=== PATIENT | male | born 1960 | race Caucasian/White ===

== ENCOUNTER 2023-11-19 07:34 | Day surgery (SDC) | payer OTHER ==
[~2023-11-19] VITALS: Ht 177.8 cm; Wt 90.0 kg
[~2023-11-19 07:34] MED LIST: IBLOOD GLUCOSE TEST STRIP 1 EA TEST VI PRN; LACTATED RINGER'S 1,000 ML IV SCH; LIDOCAINE HCL 1% 5 ML SDV INJ ONE; MIDAZOLAM HCL 5 MG/5 ML VIAL IV PRN; fentaNYL citrate 100 MCG/2 ML VIAL IV PRN
[2023-11-19 07:59] VITALS: BP 127/74
[2023-11-19] MEDS ORDERED: fentaNYL citrate 100 MCG/2 ML VIAL ONE (08:10)
[2023-11-19] MEDS ORDERED: MIDAZOLAM HCL 5 MG/5 ML VIAL ONE (08:10)
--- NOTE | 2023-11-19 09:13 | NUR ---
11/19/23 0913 Darling Johnson 0989-PATIENT ARRIVED TO PACU ON 2L NC RR EVEN. PATIENT DROWSY REACTIVE TO VERBAL STIMULI DENIES PAIN OR NAUSEA. ORIENTED TO PACU DOZES BACK TO SLEEP. ABDOMEN SOFT. IVF INFUSING.
[2023-11-19 09:45] VITALS: BP 127/82
--- NOTE | 2023-11-20 22:29 | OR ---
[facility] [address], [place] [address] Signed DATE OF OPERATION: 11/19/2023 SURGEON: Jhonny Doyle MD PREOPERATIVE DIAGNOSIS: Heme-positive stools for colonoscopy. POSTOPERATIVE DIAGNOSES: 1. Sessile rectal polyp rectosigmoid (excised). 2. Internal hemorrhoids. PROCEDURE: Total colonoscopy to cecum with cold snare polypectomy x1. ANESTHESIA: Intravenous sedation fentanyl 150 mcg and Versed 5 mg. INDICATION: This 63-year-old white man is a patient of Charisma Astudillo at [facility]. He is referred for a finding of heme-positive stool. He last underwent colonoscopy in approximately 1999 which was said to be negative. He has no family history of colon cancer. He has no actual blood per rectum. He has a distant history of hepatitis C, which was treated with interferon and said to be cured. He is now to undergo colonoscopy on the basis of his heme-positive stool. He understands the risk of bleeding, infection, and perforation. FINDINGS: The prep was excellent. Complete colonoscopy was undertaken to the cecum with intubation of the ileum as well. The ileum was normal. The only finding of note was a small sessile polyp of the rectosigmoid which was excised with cold snare technique as well as internal hemorrhoids which were friable. Likely the hemorrhoids were accounting for the bleeding or fecal occult blood. There were no other findings of concern. PROCEDURE IN DETAIL: The patient was brought to the endoscopy suite and placed in lateral decubitus position given intravenous sedation to the point of slurred speech and nystagmus. Digital rectal examination was normal. An Olympus video colonoscope was passed in the rectum and manipulated throughout the colon ultimately intubating the cecum itself. The ileocecal valve and appendiceal Electronically Signed By: JHONNY DOYLE MD 11/20/23 2229 PATIENT NAME: OLINDA ROSARIO OPERATIVE REPORT DATE OF : 58 REPORT #: [id number] PHYSICIAN: JHONNY DOYLE MD PCP: ISABELLA JIMENEZ MD REPORT IS CONFIDENTIAL AND NOT TO BE RELEASED WITHOUT AUTHORIZATION [facility] [address], [place] [address] Signed orifice were normal. The scope was able to pass through the ileocecal valve into the ileum, which appeared normal. The scope was withdrawn back into the cecum and careful withdrawal of scope examination throughout showed no sign of abnormality into the rectosigmoid where small sessile polyp was noted. This was excised with cold snare technique. Retroflexed view of the rectum showed a friable internal hemorrhoidal changes. There was no sign of active bleeding. The scope was straightened, withdrawn and removed. The patient was taken to recovery room in good condition. CONCLUDING DIAGNOSES: 1. Rectosigmoid polyp, not likely to account for bleeding. 2. Internal hemorrhoids with friability, probably accounting for bleeding. PLAN: Recommend repeat colonoscopy in 5 years. Would recommend a fiber supplement such as Metamucil one scoop p.o. daily. If kenney rectal bleeding should recur, consideration for hemorrhoidal banding in the office setting would be made. He will return to the ongoing care of Dr. Astudillo at the [facility]. If hemorrhoidal banding is needed, we are available to do so. Jhonny Doyle MD JM/MODL /[id number] cc: Charisma Astudillo [facility] Copies: ~ Electronically Signed By: JHONNY DOYLE MD 11/20/23 2229 PATIENT NAME: OLINDA ROSARIO OPERATIVE REPORT DATE OF : 58 REPORT #: [id number] PHYSICIAN: JHONNY DOYLE MD PCP: ISABELLA JIMNEEZ MD REPORT IS CONFIDENTIAL AND NOT TO BE RELEASED WITHOUT AUTHORIZATION
--- NOTE | 2023-11-21 17:27 | PATH ---
[facility] [address] [place], [place] [address] Signed SPECIMEN(S): A RECTOSIGMOID POLYP SPECIMEN SOURCE: A. RECTOSIGMOID POLYP CLINICAL HISTORY: Positive fecal occult blood test, unintentional weight loss. Polyp, internal hemorrhoids. FINAL PATHOLOGIC DIAGNOSIS: Rectosigmoid polyp: - Hyperplastic polyp (one fragment). JVR:willam MICROSCOPIC EXAMINATION: Histologic sections of all submitted blocks are examined by light microscopy. These findings, together with the gross examination, support the pathologic diagnosis. GROSS DESCRIPTION: The specimen, labeled and designated "Kauss, rectosigmoid polyp," is received in formalin and consists of two sanchez soft tissue fragments, ranging from 0.2 to 0.5 cm. Entirely submitted in (A1). VB (under the direct supervision of a pathologist) The Gross Description was prepared using a voice recognition system. The report was reviewed for accuracy; however, sound-alike word errors, addition and/or deletions may occur. If there is any question about this report, please contact Client Services. ADDITIONAL NOTES: Immunohistochemical and/or in situ hybridization studies if performed in this case included appropriate positive controls that reacted as expected. This test was developed and its performance characteristics determined by [facility]. It has not been cleared or approved by the U.S. Food and Drug Administration. The FDA has determined that such clearance or approval is not necessary. This test is used for clinical purposes. It should not be regarded as investigational or for research. [facility] is certified under the Clinical Laboratory Improvement Amendments of 1988 (CLIA) as qualified to perform high complexity clinical laboratory testing. PATIENT NAME: OLINDA ROSARIO PATHOLOGY DATE OF : 58 REPORT #: [id number] PHYSICIAN: ENMA OJEDA PCP: ISABELLA JIEMNEZ MD REPORT IS CONFIDENTIAL AND NOT TO BE RELEASED WITHOUT AUTHORIZATION [facility] [address], [place] [address] Signed PERFORMING LABORATORY: Technical component was performed by [facility], [address] [place] [address] (CLIA# [id number]). Professional interpretation was performed by [facility] - [facility], [address] [place] [id number] (CLIA#: [id number]). Diagnostician: Benny Varela MD Pathologist Electronically Signed 11/21/2023 Copies: ~ PATIENT NAME: OLINDA ROSARIO PATHOLOGY DATE OF : 58 REPORT #: [id number] PHYSICIAN: ENMA OJEDA PCP: ISABELLA JIMENEZ MD REPORT IS CONFIDENTIAL AND NOT TO BE RELEASED WITHOUT AUTHORIZATION
== END 2023-11-19 09:52 | disposition home or self-care (01) ==
LOC: DS 07:34 → OPS 07:34 → DS 11:30 → OPS 11:30
PROVIDERS: ATTEND Surgery
PROC: 0DBN8ZX Excision of Sigmoid Colon, Via Natural or Artificial Opening Endoscopic, Diagnostic (ICD-10-PCS; principal; 2023-11-19 08:30)
DX: K63.5 Polyp of colon (principal); K64.8 Other hemorrhoids; R63.4 Abnormal weight loss; R19.5 Other fecal abnormalities; Z83.1 Family history of other infectious and parasitic diseases
CPT/HCPCS: 88305; 99153; G0500; J2250; J3010; J7121

== ENCOUNTER 2024-01-27 09:44 | Emergency (ER) | payer OTHER ==
[~2024-01-27] VITALS: Ht 177.8 cm; Wt 93.0 kg
[2024-01-27] MEDS ORDERED: IBU400 MG PO (09:59)
[2024-01-27] MEDS ORDERED: IBUPROFEN 600 MG TAB PO ONE (10:30)
[2024-01-27 10:50] LABS: BASOPHILS 0.7 % (0-2); EOSINOPHILS 2.1 % (0-6); HEMATOCRIT 44.2 % (35.0-50.0); HEMOGLOBIN 15.6 g/dL (12.0-18.0); LYMPHOCYTES 20.5 % (24-44); MCH 32.7 (27-36); MCHC 35.3 g/dl (30-36); MCV 92.7 fl (81-99); MONOCYTES 12.6 % (0-12); NEUTROPHILS 64.1 % (39-80); PLATELET COUNT 123 K/uL (140-440); RBC 4.77 M/ul (4.3-5.7)
[2024-01-27 11:05] LABS: BUN/CREATININE RATIO 15.11 (6.0-28.6); CALCIUM 8.7 mg/dL (8.5-10.1); CREATININE, SERUM 0.86 mg/dL (0.70-1.30)
[2024-01-27] MEDS ORDERED: PREDNISONE20 MG PO (12:20)
[2024-01-27 12:31] VITALS: BP 155/89
== END 2024-01-27 12:33 | disposition home or self-care (01) ==
LOC: ED 09:44
PROVIDERS: Emergency Medicine
DX: M25.462 Effusion, left knee (principal); F17.200 Nicotine dependence, unspecified, uncomplicated; Z88.0 Allergy status to penicillin; Z88.8 Allergy status to other drugs, medicaments and biological substances
CPT/HCPCS: 36415; 73560; 80048; 84550; 85025; 85651; 85730; A9270

== ENCOUNTER 2024-06-30 09:13 | Inpatient (IN) | payer OTHER, MEDICARE ==
[~2024-06-30] VITALS: Ht 177.8 cm; Wt 94.0 kg
[2024-06-30] VITALS (26 sets, daily range): BP systolic 99–146; BP diastolic 57–94
[~2024-06-30 09:13] MED LIST changes: -IBLOOD GLUCOSE TEST STRIP 1 EA TEST VI PRN; +IBU400 MG PO; -LACTATED RINGER'S 1,000 ML IV SCH; -LIDOCAINE HCL 1% 5 ML SDV INJ ONE; -MIDAZOLAM HCL 5 MG/5 ML VIAL IV PRN; +PREDNISONE20 MG PO; -fentaNYL citrate 100 MCG/2 ML VIAL IV PRN
[2024-06-30] MEDS ORDERED: BENZONATATE100 MG PO (09:28)
[2024-06-30] MEDS ORDERED: FLONASE ALLERG9.9 ML NAS (09:29)
[2024-06-30] MEDS ORDERED: ZYRTEC10 MG PO (09:29)
[2024-06-30] MEDS ORDERED: dilTIAZem HCL 25 MG/5 ML VIAL IV ONE ×2 (09:45→10:00)
[2024-06-30 09:56] LABS: HEMATOCRIT 47.9 % (35.0-50.0); HEMOGLOBIN 16.8 g/dL (12.0-18.0); MCH 33.4 (27-36); MCV 95.3 fl (81-99); PLATELET COUNT 260 K/uL (140-440); RBC 5.03 M/ul (4.3-5.7)
[2024-06-30 10:05] LABS: ALBUMIN 3.1 g/dL (3.4-5.0); ALBUMIN/GLOBULIN RATIO 0.79 (1.1-2.4); BILIRUBIN, TOTAL 1.8 ng/dL (0.2-1.0); BUN/CREATININE RATIO 13.27 (6.0-28.6); CALCIUM 8.9 mg/dL (8.5-10.1); CREATININE, SERUM 1.13 mg/dL (0.70-1.30); MAGNESIUM 1.5 mg/dL (1.8-2.4); TSH, 3RD GENERATION 1.173 uIU/mL (0.358-3.740)
[2024-06-30 10:19] LABS: LYMPHOCYTES, MANUAL DIFF 17; MONOCYTES, MANUAL DIFF 6; NEUTROPHILS, MANUAL DIFF 77
[2024-06-30] MEDS ORDERED: CEFTRIAXONE/SODIUM CHLORIDE 1 GM/100 ML PIGGYBACK IV ONE (10:45)
[2024-06-30] MEDS ORDERED: AZITHROMYCIN 250 MG TAB PO ONE (10:45)
[2024-06-30] MEDS ORDERED: ACETAMINOPHEN 325 MG TAB PO PRN (11:15)
[2024-06-30] MEDS ORDERED: LACTATED RINGER'S 1,000 ML IV SCH (11:15)
[2024-06-30] MEDS ORDERED: PROCHLORPERAZINE EDISYLATE 10 MG/2 ML VIAL IV PRN (11:15)
[2024-06-30] MEDS ORDERED: ondansetron HCL 4 MG/2 ML VIAL IV PRN (11:15)
[2024-06-30] MEDS ORDERED: DILTIAZEM HCl/D5W 125 ML IV ONE ×2 (11:15→20:40)
[2024-06-30 11:24] LABS: AMPHETAMINES, URINE NEGATIVE (NEGATIVE); BARBITURATES, URINE NEGATIVE (NEGATIVE); BENZODIAZEPINE, URINE NEGATIVE (NEGATIVE); BUPRENORPHINE, URINE NEGATIVE (NEGATIVE); CANNABINOID, URINE NEGATIVE (NEGATIVE); COCAINE, URINE NEGATIVE (NEGATIVE); ECSTASY, URINE NEGATIVE (NEGATIVE); FENTANYL, URINE NEGATIVE (NEGATIVE); METHADONE, URINE NEGATIVE (NEGATIVE); OPIATES, URINE NEGATIVE (NEGATIVE); OXYCODONE, URINE NEGATIVE (NEGATIVE); PHENCYCLIDINE, URINE NEGATIVE (NEGATIVE)
[2024-06-30 12:00] LABS: INFLUENZA B NAA NEGATIVE (NEGATIVE); RESPIRATORY SYNCYTIAL VIR NAA NEGATIVE (NEGATIVE)
[2024-06-30] MEDS ORDERED: PHARMACY RENAL DOSE ADJUSTMENT 1 DOSE MISC PO SCH (12:00)
--- NOTE | 2024-06-30 12:51 | NUR ---
OLINDA ARRIVED TO THE UNIT ON ED STRETCHER. HE ENDORSED LEFT BACK PAIN 6/10, IS NOTED TO BE COUGHING, AND ENDORSES DISCOMFORT. KIKA AT BEDSIDE. ROUNDS WITH MD BOWEN COMPLETED. DILT GTT INCREASED FROM 10MG/HR TO 15MG/HR. AFIB 106-130.
[2024-06-30] MEDS ORDERED: APIXABAN 5 MG TAB PO SCH (13:00)
[2024-06-30] MEDS ORDERED: METOPROLOL TARTRATE 25 MG TAB PO SCH (13:01)
--- NOTE | 2024-06-30 13:10 | EKG ---
[facility] [address] [facility] [place], [place] [address] Signed Sinus tachycardia with premature supraventricular complexes and with occasional premature ventricular complexes Right bundle branch block Abnormal ECG No previous ECGs available Confirmed by Laurent Bowen MD ([id number]) on 06/30/2024 1:09:52 PM Electronically Signed By: LAURENT BOWEN DO 06/30/24 1310 PATIENT NAME: CELINAMORGANOLINDA Electrocardiogram DATE OF : 58 PHYSICIAN: LAURENT BOWEN DO REPORT #: [id number] REPORT IS CONFIDENTIAL AND NOT TO BE RELEASED WITHOUT AUTHORIZATION
[2024-06-30] MEDS ORDERED: HYDROmorphone HCL 2 MG TAB PO PRN (13:15)
[2024-06-30] MEDS ORDERED: MAGNESIUM SULFATE 2 GM/50 ML BAG IV ONE ×2 (13:15→15:30)
[2024-06-30] MEDS ORDERED: ALBUTEROL SULFATE 0.5% 2.5 MG/0.5 ML VIAL INH PRN (13:15)
--- NOTE | 2024-06-30 14:05 | NUR ---
SUPERVISOR PAINTING DEPARTMENT IN ROOM. MILD INTOLERANCE ON LEFT SIDE. PATIENT IS NOTED TO BE COUGHING, AFIB WITH RVR,
[2024-06-30] MEDS ORDERED: LIDOCAINE HCL 4% 1 EACH PATCH TD SCH (14:23)
--- NOTE | 2024-06-30 15:06 | NUR ---
UR CLINICAL REVIEW: [facility] INPT CRITERIA FOR PNEUMONIA [facility] 06/30/24 @ 1114 ORDER MATCHES REG CLINICALS FAXED TO [facility] DISCHARGE TO HOME WHEN STABLE 07/02/24
[2024-06-30] MEDS ORDERED: IBU400 MG PO (15:50)
[2024-06-30] MEDS ORDERED: UREA85 G1 TOP (15:51)
--- NOTE | 2024-06-30 15:51 | NUR ---
MED REC COMPLETE
--- NOTE | 2024-06-30 16:34 | NUR ---
PRN 2MG DILAUIDID AND LIDOCAINE GIVEN AND PLACED ON BACK FOR PAIN. PATIENT IS NOW RESTING WITH EYES CLOSED, APPEARS COMFORTABLE, AND IS "FINALLY RESTING". HIS STATES THAT SHE IS GREATEFUL FOR THE CARE THAT HER HAS RECEIVED. NEURO- ALERT AND ORIENTED, MOVES ALL EXTREMITIES, PERRL, DENIES NUMBNESS OR TINGLING CARDIAC- AFIB, DILT 10MG/HR, AFEBRILE, NO EDEMA NOTED RESP- RA-2L NC, SONOROUS BREATHS WHILE SLEEPING, SA NOTED, RT EVAL ORDERED, COUGH, RECENTLY QUIT SMOKING, DECLINES NEED FOR FENTANYL PATCH GI/- 2GM NA DIET, NORMOACTIVE BOWEL TONES, PASSING FLATUS, BELCHING, LAST BM 06/30/24 INT- WDL LR 100
[2024-06-30] MEDS ORDERED: ALBUTEROL SULFATE 0.042% 1.25 MG/3 ML VIAL INH PRN (17:15)
--- NOTE | 2024-06-30 19:08 | NUR ---
PATIENT RESTING IN BED. PRN PAIN MEDICATION ADMINISTERED BY REQUEST OF PRIMARY RN. PATIENT REPORTS 8/10 LEFT LOWER BACK PAIN. FRESH WATER PROVIDED. NO FURTHER NEEDS. CALL LIGHT IN REACH.
--- NOTE | 2024-06-30 19:45 | NUR ---
RECEIVED REPORT FROM DAY SHIFT RN. PATIENT IS RESTING IN BED VISITING WITH . PATIENT DENIES ANY NEEDS. CALL LIGHT IN REACH.
[2024-06-30] MEDS ORDERED: ALBUTEROL/IPRATROPIUM 3 ML NEB INH SCH (20:00)
[2024-06-30] MEDS ORDERED: MELATONIN 3 MG TAB PO PRN (21:00)
[2024-06-30] MEDS ORDERED: DILTIAZEM HCl/D5W 125 ML IV SCH (21:00)
[2024-06-30] MEDS ORDERED: LIDOCAINE PATCH REMOVAL 1 EA TD SCH (21:00)
--- NOTE | 2024-06-30 21:20 | NUR ---
PATIENT IS RESTING IN BED. NAD NOTED. VITALS RECORDED. PATIENT DENIES ANY SOB. PATIENT REMAINS ON 3L VIA NC. PM MEDS GIVEN PER ORDER. DILT DRIP INFUSING PER ORDER. PATIENTS IV FLUIDS INFUSING PER ORDER. PATIENT DENIES ANY PAIN. ASSSMENT COMPLETED. UPDATE PATIENT AND PATIENTS ON PLAN OF CARE AND ALL QUESTIONS ANSWERED. PATIENT DENIES ANY NEEDS. CALL LIGHT IN REACH.
--- NOTE | 2024-06-30 21:45 | NUR ---
PATIENT REPORTS 8/10 PAIN IN HIS LEFT MID TO BACK RIB CAGE, PRN MEDICATION GIVEN PER ORDER. URINAL EMPTIED NO FURTHER NEEDS. NOTED. CALL LIGHT IN REACH.
--- NOTE | 2024-06-30 22:45 | NUR ---
PATIENT IS RESTING IN BED VISITING WITH NAD NOTED. PATIENTS DILT DRIP TITRATED DOWN PER PROTOCOL-SEE FLOWSHEET. UPDATE PATIENT ON PLAN OF CARE. NO QUESTIONS NOTED. NO NEEDS NOTED. CALL LIGHT IN REACH.
--- NOTE | 2024-06-30 23:00 | NUR ---
PATIENT IS RESTING IN BED ON LEFT SIDE WITH EYES CLOSED, RR 23. NAD NOTED. IV DILT TURNED OFF PER ORDER. PATIENTS HAS LEFT FOR EVENING. VERIFIED PATIENTS WIFES PHONE NUMBER WITH CHART. PATIENT CONTINUES TO REST IN BED WITH EYES CLOSED. 3L VIA NC REMAINS ON PLACE. CALL LIGHT IN REACH.
[2024-07-01] VITALS (16 sets, daily range): BP systolic 108–131; BP diastolic 43–107
--- NOTE | 2024-07-01 01:30 | NUR ---
PATIENT IS RESTING IN BED ON PHONE. PATIENT DENIES ANY PAIN OR SOB. PATIENT TITRATED TO 2L VIA NC. PATIENT REPORTS BEING UNABLE TO SLEEP, PRN SLEEP AID ADMINISTERED PER ORDER. PATIENT DENIES ANY FURTHER NEEDS. IV INFUSING PER ORDER. CALL LIGHT IN REACH.
--- NOTE | 2024-07-01 03:14 | NUR ---
PATIENT IS RESTING IN BED WITH EYES CLOSED, RR 26. NAD NOTED. CALL LIGHT IN REACH. IV INFUSING PER ORDER.
--- NOTE | 2024-07-01 04:20 | NUR ---
PT UP TO STAND AT BEDSIDE AND VOID. PATIENT BACK IN BED RESTING. PATIENT DENIES ANY SOB. PATIENT PLACED ON OXYMASK PER REQUEST FOR COMFORT. PATIENT REPORTS 8/10 PAIN IN LEFT BACK, PRN MEDICATION GIVEN PER ORDER. FRESH ICE WATER PROVIDED. PATIENT DENIES ANY FURTHER NEEDS. CALL LIGHT IN REACH.
--- NOTE | 2024-07-01 04:45 | NUR ---
PATIENT REPORTS SOB. RT IN ROOM TO ADM IN [facility].
[2024-07-01] MEDS ORDERED: ALBUTEROL SULFATE 0.083% 3 ML VIAL INH PRN (05:00)
--- NOTE | 2024-07-01 05:07 | NUR ---
PATIENT IS RESTING IN BED. PATIENT PLACED BACK ON 2L VIA NC FROM OXYMASK. PATIENT REPORTS IMPROVEMENT OF SOB AFTER NEB TX. PATIENT DENIES ANY FURTHER NEEDS. CALL LIGHT IN REACH. IV INFUSING PER ORDER. PATIENT DENIES ANY FURTHER NEEDS. CALL LIGHT IN REACH.
[2024-07-01 05:28] LABS: BASOPHILS 0.5 % (0-2); EOSINOPHILS 2.2 % (0-6); HEMATOCRIT 41.9 % (35.0-50.0); HEMOGLOBIN 14.9 g/dL (12.0-18.0); LYMPHOCYTES 17.7 % (24-44); MCHC 35.5 g/dl (30-36); MCV 95.6 fl (81-99); NEUTROPHILS 63.6 % (39-80); PLATELET COUNT 248 K/uL (140-440); RBC 4.39 M/ul (4.3-5.7); RDW 13.3 (10.5-15.0)
[2024-07-01 06:17] LABS: ALBUMIN 2.6 g/dL (3.4-5.0); ALBUMIN/GLOBULIN RATIO 0.72 (1.1-2.4); ANION GAP 12.9 (7-21); BILIRUBIN, TOTAL 1.8 ng/dL (0.2-1.0); BUN/CREATININE RATIO 15.5 (6.0-28.6); CALCIUM 8.7 mg/dL (8.5-10.1); CREATININE, SERUM 1.29 mg/dL (0.70-1.30); MAGNESIUM 2.4 mg/dL (1.8-2.4); POTASSIUM 3.9 mmol/L (3.5-5.1); PROTEIN, TOTAL 6.2 g/dL (6.4-8.2)
--- NOTE | 2024-07-01 06:20 | NUR ---
PATIENT RESTING IN BED. STANDING WEIGHT OBTAINED AND RECORDED. PATIENT VOIDED 350 mL OF DARK YELLOW URINE INTO URINAL. PATIENT BACK TO BED. DENIES FURTHER NEEDS AT THIS TIME. CALL LIGHT IN REACH.
--- NOTE | 2024-07-01 08:13 | NUR ---
PT C/O OF LEFT RIB CHEST PAIN, LIDOCAIN PATCH PLACED. PT FRUSTERATED - UPDATED WHITE BOARD AND MEDS GIVEN. 108/43 BP.
--- NOTE | 2024-07-01 08:20 | NUR ---
DR AND IN ROOM WITH PT TO DISSCUSS PLAN OF CARE WITH THIS RN.
[2024-07-01] MEDS ORDERED: METOPROLOL TARTRATE 50 MG TAB PO SCH ×2 (09:00→21:00)
[2024-07-01] MEDS ORDERED: AZITHROMYCIN 250 MG TAB PO SCH (09:00)
[2024-07-01] MEDS ORDERED: FLU VACC TS2024(65UP)/MF59C/PF 1 EACH SYR IM SCH (09:00)
[2024-07-01] MEDS ORDERED: CEFTRIAXONE/SODIUM CHLORIDE 2 GM/100 ML PIGGYBACK IV SCH (09:00)
--- NOTE | 2024-07-01 09:35 | NUR ---
VISITED PT DURING SPIRITUAL CARE ROUNDS. PT SUPPORTED BY IN ROOM. TALKED OF TWO SIGNIFICANT LOSSES WITHIN PAST YEAR; BECAME TEARFUL. CHARTER REPRESENTATIVE FACILITATED LIFE REVIEW, PROVIDED SUPPORTIVE PRESENCE, PRAYER, ANTICIPATORY GUIDANCE. PT AND EXPRESSED GRATITUDE, TONY.
[2024-07-01] MEDS ORDERED: METOPROLOL TARTRATE 25 MG TAB PO ONE (09:45)
[2024-07-01] MEDS ORDERED: hydrOXYzine pamoate 25 MG CAP PO PRN (10:15)
--- NOTE | 2024-07-01 11:05 | NUR ---
PT GIVEN VISTIRIL TO HELP WITH ANXIETY AND ANXIOUS FEELING FROM SMOKING. LETS US KNOW HE IS A DAILY SMOKER BUT REFUSES PATCH OR GUM. PT WILL NOT ADMIT TO SMOKING. REPORTS COUGH IS IMPROVED PAIN AFTER PO MED. USING RESP TRUMPET WELL, PT SHOWS SIGNS OF SLEEP APNEA AT REST, SATS DECLINE TO HIGH 80'S. CALL LIGHT IN REACH.
--- NOTE | 2024-07-01 12:50 | NUR ---
Spoke with Thomas. He lives in a home without steps into the home. House is 2 story and he use both the upstairs and downs stairs. He denies issues with the steps. He states he has handrails into the home and in the bathroom. They have a walker and elevated toilet seats. He is an [place] and is 60% service connected. He states they have 4 children between them. One daughter lives in town and can assist if needed. Cheryl with shop, cook, clean as needed. He denies financial issues. Pt plans on dc to home when cleared medically.
--- NOTE | 2024-07-01 14:06 | NUR ---
IN ROOM WITH RESP THERAPY AND PT, AND FAMILY - PT ADMITS TO SMOKING UP TILL LAST WEEK - OXYGEN 2 L NC AT SATS 92%, ADMITS TO OBSERVING SOME SLEEP APNEA AT HOME, PT RIB PAIN WITH COUGH IS BIGGEST COMPLAINT, VISTIRIL AND DILAUDID PO GIVEN. CALL LIGHT IN REACH.
[2024-07-01 16:30] LABS: HEPATITIS A ANTIBODY, IGM Negative (Negative); HEPATITIS B CORE ANTIBODY, IGM Negative (Negative); HEPATITIS B SURFACE ANTIGEN Negative (Negative); HEPATITIS C AB CIA INTERP Low Pos (Negative); HEPATITIS C ANTIBODY CIA INDEX 10.59 IV (())
[2024-07-01 17:19] LABS: THYROXINE 7.9 ug/dL (4.50-11.70)
--- NOTE | 2024-07-01 17:54 | NUR ---
PT VOID 200 ML URINE IN URINAL - DARK - REPORTS HE LIKED THE BIPAP TODAY, SOB WITH EXERTION AND ANXIETY. HARD TO BREATH WITH LEFT RIB PAIN, LIDO RUIZ PATCH IN PLACE. MELATONIN AND VISTIRIL GIVEN, PT REPORTS HE WOULD LIKE TO SLEEP - ASSISTED WITH BIPAP ON.
[2024-07-01] MEDS ORDERED: THIAMINE HCL 100 MG TAB PO SCH (19:06)
[2024-07-01] MEDS ORDERED: LORazepam 2 MG/ML VIAL IV/IM PRN (19:15)
[2024-07-01] MEDS ORDERED: FOLIC ACID 1 MG TAB PO SCH (19:15)
--- NOTE | 2024-07-01 19:45 | NUR ---
handoff report received from ANISHA Stevens. patient resting with eyes closed, awakens to verbal stimuli. patient updated on plan of care for the night. family remains at bedside.
--- NOTE | 2024-07-01 20:00 | NUR ---
patient laying in bed with eyes closed, easily awakens to verbal stimuli. patient drowsy, but able to follow commands and answer questions. patient updated on plan of care for the night. patient to be taken to for CXR. no needs at this time. family remains at bedside.
--- NOTE | 2024-07-01 20:50 | NUR ---
patient noted to have temp of 100.8. PRN tylenol given per emar. Sheets removed, and cold wash cloth provided. no further needs at this time.
[2024-07-01] MEDS ORDERED: METOPROLOL TARTRATE 100 MG TAB PO SCH (21:00)
[2024-07-01] MEDS ORDERED: FUROSEMIDE 40 MG/4 ML VIAL IV ONE (21:15)
--- NOTE | 2024-07-01 21:15 | NUR ---
patient noted to become more confused and agitated. patient pulls off leads, gown, O2, and BP cuff. patient sits up in bed and states he wants to go to his bed. patient reoriented and assisted to lay back down. patient family at bedside and assist calming patient. patient back on monitor and 3L NC, denies wanting new gown. patient door and curtain remain open, bed alarm on. call light in reach.
--- NOTE | 2024-07-01 21:20 | NUR ---
DOCTOR AWARE OF CHANGE IN PATIENT STATUS. DOCTOR IN ROOM TO DISCUSS PLAN OF CARE.
--- NOTE | 2024-07-01 21:30 | NUR ---
PATIENT GOT UP OUT OF BED WITH 2 PERSON ASSISTANCE. PATIENT A LITTLE UNSTEADY. PATIENT VOIDED INTO URINAL - 200 MLS OF CLEAR, DARK YELLOW URINE. ASSISTED PATIENT BACK INTO BED AFTER VOIDING.
--- NOTE | 2024-07-01 22:20 | NUR ---
Patient CIWA score of 17. PRN ativan given per emar.
--- NOTE | 2024-07-01 23:20 | NUR ---
patient grimicing and holding left lower rib cage. PRN pain medication given per EMAR.
--- NOTE | 2024-07-01 23:55 | NUR ---
patient pulls off monitor leads and O2. patient pulls out IV site, tip intact, covered with guaze and coband. patient sitting up in bed, states he does not want to be here. patient gets up and walks toward door, this RN and acid splicer attempt to reorient and reassure patient. patient unsteady on feet. patient redirected and encouraged to get back into bed. patient agrees after several minutes, at bedside to assist. patient back in bed. CIWA score of 20. PRN ativan given per emar. 3L NC and monitor leads placed back on patient. bed alarm on, patient door and curtain remain open.
[2024-07-02] VITALS: BP 105/77
--- NOTE | 2024-07-02 00:40 | NUR ---
patient resting in bed with eyes closed, respirations even and unlabored. patient remains at bed side. bed alarm on, and bed in low and locked position. curtain and door remain open.
--- NOTE | 2024-07-02 02:00 | NUR ---
patient resting in bed with eyes closed, respirations even and unlabored. NAD noted. patient remains on 3L NC with O2 saturation at 93%. no needs at this time. bed in low and locked position with bed alarm on. patient door and curtain remain open.
[2024-07-02 03:05] VITALS: BP 121/102
--- NOTE | 2024-07-02 03:39 | NUR ---
patient awakens, pulls off leads. patient sits up in bed, and states he is going to spiritism. patient stands, unsteady on feet, x2 RN at bedside, assisted with urinal. patient voids 800cc urine. patient reoriented, and redirected to bed. patient impulsive with his movements. CIWA score of 15. PRN ativan given per EMAR. bed alarm on, bed in low and locked position. patient door and curtain remain open.
--- NOTE | 2024-07-02 05:10 | NUR ---
lab in room for AM lab draw. patient tolerated well. no needs at this time. bed in low and locked position with bed alarm on. patient door and curtain remain open.
[2024-07-02 05:26] LABS: BASOPHILS 0.4 % (0-2); EOSINOPHILS 1.5 % (0-6); HEMATOCRIT 43.9 % (35.0-50.0); HEMOGLOBIN 15.4 g/dL (12.0-18.0); LYMPHOCYTES 11.5 % (24-44); MCH 33.6 (27-36); MCV 95.9 fl (81-99); MONOCYTES 16.6 % (0-12); PLATELET COUNT 246 K/uL (140-440); RBC 4.58 M/ul (4.3-5.7)
[2024-07-02 05:40] LABS: ALBUMIN 2.3 g/dL (3.4-5.0); ALBUMIN/GLOBULIN RATIO 0.64 (1.1-2.4); ANION GAP 13.2 (7-21); BILIRUBIN, TOTAL 2.3 ng/dL (0.2-1.0); BUN/CREATININE RATIO 19.44 (6.0-28.6); CALCIUM 8.7 mg/dL (8.5-10.1); CREATININE, SERUM 1.08 mg/dL (0.70-1.30); MAGNESIUM 1.8 mg/dL (1.8-2.4); POTASSIUM 4.2 mmol/L (3.5-5.1); PROTEIN, TOTAL 5.9 g/dL (6.4-8.2)
[2024-07-02 06:46] VITALS: BP 129/80
--- NOTE | 2024-07-02 06:50 | NUR ---
patient restless in bed. patient assisted out of bed to use urinal, better able to follow commands this AM, remains unsteady on feet. patient voids 600cc and back to bed. patient scores CIWA of 12. PRN ativan given per emar.
--- NOTE | 2024-07-02 07:30 | NUR ---
ASSUMING CARE OF PT. RECEIVED REPORT FROM NARESH LANCASTER.
--- NOTE | 2024-07-02 08:02 | NUR ---
PT MOVED TO ROOM 128, CLOSER TO THE NURSES STATION FOR MONITORING. PT RESPIRATIONS 30-40. RT AT BEDSIDE, BIPAP PLACED ON PT. PT APPEARS MORE RELAXED WITH BIPAP ON, BODY RESTING IN BED, NO ATTEMPTS TO PUSH OFF MASK. TEMPERATYRE OBTAINED, 99.1 ORAL.
[2024-07-02 08:09] VITALS: BP 105/82
[2024-07-02] MEDS ORDERED: LACTATED RINGER'S 1,000 ML IV ONE (09:15)
[2024-07-02] MEDS ORDERED: ESMOLOL HCL 250 ML IV SCH (09:15)
--- NOTE | 2024-07-02 09:31 | NUR ---
UR CONCURRENT CLINICAL REVIEW: [facility] INPT CRITERIA FOR PNEUMONIA, VARIANCE FOR GL DAY 2. [facility] INPT 06/30/24 @ 1114 ORDER MATCHES REG CLINICALS FAXED TO [facility]IA [facility] DISCHARGE TO HOME WHEN STABLE 07/05/24
[2024-07-02 09:52] LABS: BASE EXCESS, BLOOD GAS 0.9 mmol/L (-2-2); HCO3, BLOOD GAS 24.8 mmol/L (22-26); O2 SATURATION, BLOOD GAS 94.9 % (95.0-100.0); PCO2, BLOOD GAS 37.1 mmHg (35-45); PH, BLOOD GAS 7.44 (7.35-7.45); PO2, BLOOD GAS 72 mmHg (80-100); TOTAL CO2, BLOOD GAS 25.9
[2024-07-02 09:53] LABS: OXYGEN RECEIVED, BLOOD GAS 30%
[2024-07-02 10:47] VITALS: BP 111/79
[2024-07-02] MEDS ORDERED: MIDAZOLAM HCL 2 MG/2 ML VIAL ONE ×2 (11:01→11:51)
[2024-07-02] MEDS ORDERED: LIDOCAINE HCL 2% 5 ML SDV ONE (11:01)
[2024-07-02] MEDS ORDERED: SUCCINYLCHOLINE IN 0.9% NACL 200 MG/10 ML SYRINGE ONE (11:01)
[2024-07-02] MEDS ORDERED: propofoL 200 MG/20 ML VIAL ONE (11:01)
--- NOTE | 2024-07-02 11:30 | NUR ---
WM, CONCRETE BLOCK MOLDER AT BEDSIDE TO PREPARE FOR INTUBATION. RT AT BEDSIDE, HOSPITALIST AT BEDSIDE, OR CHARGE AT BEDSIDE TO ASSIST. PT INTUBATED WITHOUT INCIDENT, 23 AT THE LIP. PT TOLERATED WELL. IMAGING IN ROOM TO CONFIRM PLACEMENT.
[2024-07-02] MEDS ORDERED: MIDAZOLAM HCL 100 MG in DEXTROSE 5% 80 ML IV SCH (11:45)
[2024-07-02] MEDS ORDERED: FENTANYL CITRATE-0.9 % NACL/PF 100 ML IV SCH (11:45)
[2024-07-02] MEDS ORDERED: PHENYLEPHRINE HCL 10 MG/ML VIAL ONE (12:00)
[2024-07-02] MEDS ORDERED: FENTANYL CITRATE-0.9 % NACL/PF 1,000 MCG/100 ML BAG IV SCH (12:00)
[2024-07-02 12:16] VITALS: BP 131/84
[2024-07-02] MEDS ORDERED: CEFEPIME HCL/D5W 2 GM/100 ML PIGGYBACK IV SCH (14:00)
== END 2024-07-02 12:55 | disposition short-term general hospital (02) | DRG 871 ==
LOC: ED 09:13 → CCU 11:18
PROVIDERS: Emergency Medicine; Student in an Organized Health Care Education/Training Program; ADMIT Student in an Organized Health Care Education/Training Program; ATTEND Student in an Organized Health Care Education/Training Program
PROC: 3E03329 Introduction of Other Anti-infective into Peripheral Vein, Percutaneous Approach (ICD-10-PCS; 2024-07-01)
PROC: 0T9B70Z Drainage of Bladder with Drainage Device, Via Natural or Artificial Opening (ICD-10-PCS; principal; 2024-07-02)
DX: A41.9 Sepsis, unspecified organism (principal); J18.9 Pneumonia, unspecified organism; F10.239 Alcohol dependence with withdrawal, unspecified; J90 Pleural effusion, not elsewhere classified; I48.91 Unspecified atrial fibrillation; F17.200 Nicotine dependence, unspecified, uncomplicated; K70.30 Alcoholic cirrhosis of liver without ascites; E80.6 Other disorders of bilirubin metabolism; Z87.19 Personal history of other diseases of the digestive system; Z88.0 Allergy status to penicillin; Z88.6 Allergy status to analgesic agent; Z79.899 Other long term (current) drug therapy; Z68.30 Body mass index [BMI] 30.0-30.9, adult; Z86.19 Personal history of other infectious and parasitic diseases; Z98.890 Other specified postprocedural states
CPT/HCPCS: 00320; 31500; 36415; 36600; 51702; 71045; 71046; 71260; 80053; 80074; 80307; 82803; 83735; 83880; 84436; 84443; 84484; 85025; 87502; 87522; 93005; 93010; 93306; 94002; 94640; 94660; 94667; 94668; A9270; J0330; J0696; J1940; J2003; J2060; J2250; J2371; J2704; J3010; J3475; J7121; Q0177; Q9967; U0002